=== PATIENT | male | born 1970 | race Two or more races ===

== ENCOUNTER 2018-02-01 05:50 | Day surgery (SDC) | payer OTHER ==
[2018-02-01] MEDS ORDERED: IV RINGERS,LACTATED 1000ML 1,000 ML IV (06:45)
[2018-02-01] MEDS ORDERED: LIDOCAINE 1% PF 5 ML VIAL. (07:26)
[2018-02-01] MEDS ORDERED: PROPOFOL 20 ML IV (07:26)
[2018-02-01] MEDS ORDERED: ONDANSETRON PF 4 MG/2 ML VIAL. (07:26)
[2018-02-01] MEDS ORDERED: DEXAMETHASONE SOD PHOS 20 MG/5 ML VIAL. (07:26)
[2018-02-01] MEDS ORDERED: fentaNYL PF VIAL 100 MCG/2 ML VIAL (07:27)
[2018-02-01] MEDS ORDERED: MIDAZOLAM HCL/PF 2 MG/2 ML VIAL. (07:33)
[2018-02-01] MEDS ORDERED: ceFAZolin 2GM PREMIX 2 GM/50 ML BAG IV (08:00)
[2018-02-01] MEDS ORDERED: SEVOFLURANE 31 TO 60 MINUTES. IH (08:57)
[2018-02-01] MEDS ORDERED: KETOROLAC 30 MG/ML INJ FOR OR. INJ (09:12)
[2018-02-01] MEDS ORDERED: ONDANSETRON PF 4 MG/2 ML VIAL. IV (09:30)
[2018-02-01] MEDS ORDERED: PROCHLORPERAZINE 10 MG/2 ML VIAL. IV (09:30)
[2018-02-01] MEDS ORDERED: LIDOCAINE 1% PF 2 ML VIAL. ID (09:30)
[2018-02-01] MEDS ORDERED: fentaNYL PF VIAL 100 MCG/2 ML VIAL IV (09:30)
[2018-02-01] MEDS: IV RINGERS,LACTATED 1000ML 1,000 ML IV (09:43)
[2018-02-01] MEDS: fentaNYL PF VIAL 100 MCG/2 ML VIAL IV ×2 (09:52→09:59)
[2018-02-01] MEDS: MORPHINE SULFATE 4 MG/ML DISP.SYRIN. IV ×2 (10:07→10:18)
[2018-02-01] MEDS: oxyCODONE/APAP 5/325 1 TAB TABLET PO (10:37)
[2018-02-02] MEDS: BUPIVAC MPF-EPI 0.5%-1:200000 30 ML VIAL. INJ (07:53)
== END 2018-02-01 11:22 | disposition home or self-care (01) ==
LOC: SURG 05:50
DX: K40.90 Unilateral inguinal hernia, without obstruction or gangrene, not specified as recurrent (principal); I10 Essential (primary) hypertension; Z87.891 Personal history of nicotine dependence; Z79.899 Other long term (current) drug therapy; Z98.890 Other specified postprocedural states
CPT/HCPCS: 49505; C1769; C1781; J0690; J1100; J1885; J2250; J2270; J2405; J2704; J3010; J3490

== ENCOUNTER 2018-02-02 14:13 | Emergency (ER) | payer OTHER ==
[2018-02-02] MEDS: LIDO:MAALOX:DONNATAL 1:1:1 15 ML SINGLE DOSE SWSW (14:54)
[2018-02-02 14:59] LABS: ADD MAN DIFF? NO
[2018-02-02] MEDS ORDERED: PIPERACILLIN/TAZOBACTAM 4.5 GM in IV NORMAL SALINE 100ML 100 ML IV (15:00)
[2018-02-02] MEDS ORDERED: IPRATRPIUM/ALBUTEROL 0.5/2.5MG 3 ML NEBU. NEB (15:00)
[2018-02-02] MEDS ORDERED: KETOROLAC 30 MG/ML INJ. IV (15:00)
[2018-02-02 15:05] LABS: BASO % 0 % (0-3); EOS # 0.1 x10^3/uL (0.0-0.7); EOS % 1 % (0-3); HEMATOCRIT 37.9 % (39.0-53.0); LYMPH # 2.7 x10^3/uL (1.0-4.8); LYMPH % 27 % (24-48); MEAN CORPUSCULAR HEMOGLOBIN 31 pg (25-35); MEAN CORPUSCULAR HGB CONC 34 g/dL (31-37); MEAN CORPUSCULAR VOLUME 89 fL (79-100); MONO # 0.7 x10^3/uL (0.0-1.1); MONO % 7 % (0-9); NEUT # 6.6 x10^3uL (1.8-7.7); NEUT % 65 % (31-73); PLATELET COUNT 212 x10^3/uL (140-400); RED BLOOD COUNT 4.26 x10^6/uL (4.30-5.70); RED CELL DISTRIBUTION WIDTH 13.3 % (11.5-14.5); WHITE BLOOD COUNT 10.2 x10^3/uL (4.0-11.0)
[2018-02-02] MEDS ORDERED: CONTRAST GIVEN MC (15:30)
[2018-02-02 16:14] LABS: AGAP ISTAT 16 mmol/L (6-14); BUN ISTAT 17 mg/dL (8-26); CHLORIDE ISTAT 106 mmol/L (98-110); CREATININE ISTAT 0.6 mg/dL (0.5-1.4); GLUCOSE ISTAT 118 mg/dL (70-99); HEMATOCRIT ISTAT 35 % (37-52); HEMOGLOBIN ISTAT 11.9 g/dL (14-18); ION CA ISTAT 1.18 mmol/L (1.13-1.32); POTASSIUM ISTAT 3.7 mmol/L (3.5-5.0); SODIUM ISTAT 142 mmol/L (135-145); TOT CO2 ISTAT 25 mmol/L (23-32)
[2018-02-02 16:42] LABS: TROPONINI < 0.017 ng/mL (0.000-0.055)
[2018-02-02] MEDS: IOHEXOL 300 MG/ML 100ML VIAL. IV (16:55)
[2018-02-02 18:10] LABS: TROPONINI < 0.017 ng/mL (0.000-0.055)
== END 2018-02-02 18:41 | disposition home or self-care (01) ==
LOC: ER 14:13
DX: R07.89 Other chest pain (principal); I10 Essential (primary) hypertension
CPT/HCPCS: 36415; 71045; 71275; 80047; 84484; 85025; 93005; 99285-25; Q9967